=== PATIENT | female | born 1995 | race Hispanic/Latino ===

== ENCOUNTER 2022-06-30 15:29 | Outpatient (CLI) | payer OTHER | END 2022-06-30 15:30 | disposition home or self-care (01) | LOC: CSHULT 15:29 | PROVIDERS: ATTEND Family Medicine | DX: Z34.02 Encounter for supervision of normal first pregnancy, second trimester (principal); Z3A.34 34 weeks gestation of pregnancy | CPT/HCPCS: 76805 ==

== ENCOUNTER 2023-11-25 16:11 | Emergency (ER) | payer SELFPAY | END 2023-11-25 17:20 | disposition home or self-care (01) | LOC: CSHERS 16:11 | DX: B36.0 Pityriasis versicolor (principal); Z75.8 Other problems related to medical facilities and other health care | CPT/HCPCS: 99282 ==